=== PATIENT | female | born 1990 | race Asian ===

== ENCOUNTER 2019-07-13 00:56 | Emergency (ER) | payer SELFPAY ==
[~2019-07-13] VITALS: Ht 157.5 cm; Wt 59.0 kg
[2019-07-13 01:55] VITALS: BP 144/74
--- NOTE | 2019-07-13 01:58 | NUR ---
ER Nurse Note: Pt brought in by ambulance 29 from [facility] lobby c/o ALOC from unk cause. Per EMS, pt was found down, not answering to questions but combative. Pt unconscious, reacts with pain. Pt VSS, RA, chest rise and fall noted. Pupils equal and reactive to light. IV established RT AC; blood collected and infusing fluids. Side rails padded for pt safety. All orders completed per ERMD orders. All safety measures met; will continue to montior.
[2019-07-13 02:14] LABS: APPEARANCE,URINE CLEAR; BILIRUBIN, URINE NEGATIVE (NEGATIVE); COLOR,URINE PALE YELLOW; GLUCOSE, URINE (UA) NEGATIVE (NEGATIVE); KETONES,URINE 3+ (NEGATIVE); LEUKOCYTE ESTERASE ,URINE NEGATIVE (NEGATIVE); NITRITE,URINE NEGATIVE (NEGATIVE); PH,URINE 6.5 (4.5-8.0); PROTEIN,URINE NEGATIVE (NEGATIVE); UROBILINOGEN,URINE NORMAL MG/DL (0.0-1.0)
[2019-07-13 02:17] LABS: ANION GAP 14 mmol/L (5-15); BLOOD UREA NITROGEN 10 mg/dL (7-18); CALCIUM 9.1 MG/DL (8.5-10.1); CARBON DIOXIDE 24 MMOL/L (21-32); CHLORIDE 103 MMOL/L (98-107); CREATININE 0.9 MG/DL (0.55-1.30); POTASSIUM 3.5 MMOL/L (3.5-5.1); SODIUM 141 MMOL/L (136-145)
[2019-07-13 02:27] LABS: ALANINE AMINOTRANSFERASE 16 U/L (12-78); ALBUMIN 4.1 G/DL (3.4-5.0); ALBUMIN/GLOBULIN RATIO 1.4 (1.0-2.7); ALKALINE PHOSPHATASE 45 U/L (46-116); ASPARTATE AMINO TRANSFERASE 25 U/L (15-37); BILIRUBIN,TOTAL 1.1 MG/DL (0.2-1.0)
[2019-07-13 02:34] LABS: RED BLOOD COUNT 3.75 M/UL (4.20-5.40); WHITE BLOOD COUNT 9.4 K/UL (4.8-10.8)
[2019-07-13 02:35] LABS: HEMATOCRIT 38.5 % (37.0-47.0); HEMOGLOBIN 13.6 G/DL (12.0-16.0); MEAN CORPUSCULAR VOLUME 103 FL (80-99); PLATELET COUNT 245 K/UL (150-450); RED CELL DISTRIBUTION WIDTH 12.4 % (11.6-14.8)
[2019-07-13 02:50] VITALS: BP 138/70
[2019-07-13 02:51] LABS: BILIRUBIN,DIRECT 0.1 MG/DL (0.0-0.3)
--- NOTE | 2019-07-13 02:51 | NUR ---
ER Nurse Note: Pt asleep, no signs of distress, RA. Pt calm. Fluids administred. No n/v, no falls. All safety measures met; will continue to monitor.
--- NOTE | 2019-07-13 04:59 | Emergency Room Report ---
History of Present Illness General Chief Complaint: Altered Mental Status Source: EMS Present Illness HPI 29-year-old female presents ED for evaluation of delirium and altered mental status. Per EMS patient found in lobby of apartment building curled up in position tonight. Bystanders called 911. Per EMS patient very agitated. Not answering questions. Given Versed. On arrival patient altered and agitated lethargic. No signs of distress. Unable to provide any additional history at this time. No other aggravating relieving factors. No other associated symptoms Allergies: Coded Allergies: UNABLE TO ASSESS (Unverified , 07/13/19) Patient History Past Medical History: none Past Surgical History: none Pertinent Family History: none Social History: Reports: drug use; Denies: smoking, alcohol use Last Menstrual Period: unk Now: No Immunizations: UTD Reviewed Nursing Documentation: PMH: Agreed; PSxH: Agreed Nursing Documentation-PMH Past Medical History Deferred: Patient Unconscious Past Medical History: Deferred Review of Systems All Other Systems: limited Physical Exam Vital Signs Date Time Temp Pulse Resp B/P (MAP) Pulse Ox O2 Delivery O2 Flow Rate FiO2 07/13/19 00:58 97.5 110 12 144/74 (97) 98 Room Air Sp02 EP Interpretation: reviewed, normal General Appearance: no apparent distress, lethargic Head: normocephalic Eyes: bilateral eye normal inspection, bilateral eye PERRL ENT: normal ENT inspection Neck: normal inspection Respiratory: chest non-tender, lungs clear, normal breath sounds, speaking full sentences Cardiovascular #1: regular rate, rhythm, no edema Gastrointestinal: normal bowel sounds, non tender, soft, non-distended, no guarding, no rebound Rectal: deferred Genitourinary: no CVA tenderness Musculoskeletal: normal inspection Neurologic: other - lethargic Psychiatric: other - lethargic Skin: no rash Lymphatic: normal inspection Medical Decision Making Diagnostic Impression: Primary Impression: Substance abuse ER Course Hospital Course 29-year-old F presents to ED with altered mental status. initially agitated, givne versed in field Differential diagnoses include: Psychosis, EtOH, drug abuse Clinical course patient placed on stretcher. On [employer]. After initial history and physical ordered labs, IV fluids Labs reviewed-electrolytes okay, no leukocytosis, hemoglobin/hematocrit stable, tox panel + for multilple substances Patient allowed to rest. Observed on [employer] with stable vitals. Protecting airway. Patient is now awake alert oriented x3, safe for discharge with close outpatient follow-up i. I feel this is a highly complex case requiring extensive working including EKG/Rhythm strip, Xray/CT/US, Blood/urine lab work, repeat exams while in ED, and administration of strong opiates/narcotics for pain control, admission to hospital or close patient follow up. Diagnosis - substance abuse Stable and discharged to home. Followup with PMD. Return to ED if symptoms recur or worsen Labs Test 07/13/19 01:30 White Blood Count 9.4 K/UL (4.8-10.8) Red Blood Count 3.75 M/UL (4.20-5.40) Hemoglobin 13.6 G/DL (12.0-16.0) Hematocrit 38.5 % (37.0-47.0) Mean Corpuscular Volume 103 FL (80-99) Mean Corpuscular Hemoglobin 36.2 PG (27.0-31.0) Mean Corpuscular Hemoglobin Concent 35.2 G/DL (32.0-36.0) Red Cell Distribution Width 12.4 % (11.6-14.8) Platelet Count 245 K/UL (150-450) Mean Platelet Volume 7.9 FL (6.5-10.1) Neutrophils (%) (Auto) % (45.0-75.0) Lymphocytes (%) (Auto) % (20.0-45.0) Monocytes (%) (Auto) % (1.0-10.0) Eosinophils (%) (Auto) % (0.0-3.0) Basophils (%) (Auto) % (0.0-2.0) Urine Color Pale yellow Urine Appearance Clear Urine pH 6.5 (4.5-8.0) Urine Specific [place] 1.020 (1.005-1.035) Urine Protein Negative (NEGATIVE) Urine Glucose (UA) Negative (NEGATIVE) Urine Ketones 3+ (NEGATIVE) Urine Blood 5+ (NEGATIVE) Urine Nitrite Negative (NEGATIVE) Urine Bilirubin Negative (NEGATIVE) Urine Urobilinogen Normal MG/DL (0.0-1.0) Urine Leukocyte Esterase Negative (NEGATIVE) Urine RBC 40-60 /HPF (0 - 2) Urine WBC 2-4 /HPF (0 - 2) Urine Squamous Epithelial Cells Few /LPF (NONE/OCC) Urine Bacteria Few /HPF (NONE) Urine HCG, Qualitative Negative (NEGATIVE) Sodium Level 141 MMOL/L (136-145) Potassium Level 3.5 MMOL/L (3.5-5.1) Chloride Level 103 MMOL/L (98-107) Carbon Dioxide Level 24 MMOL/L (21-32) Anion Gap 14 mmol/L (5-15) Blood Urea Nitrogen 10 mg/dL (7-18) Creatinine 0.9 MG/DL (0.55-1.30) Estimat Glomerular Filtration Rate > 60 mL/min (>60) Glucose Level 122 MG/DL (74-106) Calcium Level 9.1 MG/DL (8.5-10.1) Total Bilirubin 1.1 MG/DL (0.2-1.0) Direct Bilirubin 0.1 MG/DL (0.0-0.3) Aspartate Amino Transf (AST/SGOT) 25 U/L (15-37) Alanine Aminotransferase (ALT/SGPT) 16 U/L (12-78) Alkaline Phosphatase 45 U/L (46-116) Total Protein 7.1 G/DL (6.4-8.2) Albumin 4.1 G/DL (3.4-5.0) Globulin 3.0 g/dL Albumin/Globulin Ratio 1.4 (1.0-2.7) Salicylates Level < 0.4 ug/mL (2.8-20) Urine Opiates Screen Negative (NEGATIVE) Acetaminophen Level < 2 MCG/ML (10-30) Urine Barbiturates Screen Negative (NEGATIVE) Phencyclidine (PCP) Screen Negative (NEGATIVE) Urine Amphetamines Screen Positive (NEGATIVE) Urine Benzodiazepines Screen Positive (NEGATIVE) Urine Cocaine Screen Positive (NEGATIVE) Urine Marijuana (THC) Screen Negative (NEGATIVE) Serum Alcohol < 3 mg/dL Last Vital Signs Date Time Temp Pulse Resp B/P (MAP) Pulse Ox O2 Delivery O2 Flow Rate FiO2 07/13/19 02:50 97.5 88 14 138/70 98 Room Air Status: improved Disposition: HOME, SELF-CARE Condition: Stable Scripts Unable to Obtain Active Prescriptions or Reported Meds Referrals: NOT CHOSEN IPA/,REFERRING (PCP) Nikhil Jeff MD Jul 13, 2019 04:59
[2019-07-13 06:09] VITALS: BP 140/74
--- NOTE | 2019-07-13 06:10 | NUR ---
ER Nurse Note: Pt asleep, no signs of distress. Pt does not wake up to strong painful stimuli. Pt unready for discharge. All safety measures met; will continue to montior.
[2019-07-13 07:56] VITALS: BP 138/72
--- NOTE | 2019-07-13 07:56 | NUR ---
ED Nurse Note: Patient resting in bed, still drowsy. Will continue to monitor.
--- NOTE | 2019-07-13 07:56 | NUR ---
ER nurse Note: Report given to NAPOLEON Hairston for contintuiy of care.
[2019-07-13] MEDS ORDERED: LORazepam 1mg tab ORAL ONE (10:15)
[2019-07-13 10:46] VITALS: BP 128/75
--- NOTE | 2019-07-13 10:46 | NUR ---
ER Nurse Note: Pt brought in by ambulance 29 from [facility] lobby c/o ALOC from [facility] cause. Per EMS, pt was found down, not answering to questions but combative. Pt unconscious, reacts with pain. Pt VSS, RA, chest rise and fall noted. Pupils equal and reactive to light. IV established RT AC; blood collected and infusing fluids. Side rails padded for pt safety. All orders completed per ERMD orders. All safety measures met; will continue to montior.
--- NOTE | 2019-07-13 10:47 | NUR ---
Note melany in EDM - 07/13/19 at 1048 by KRISTEL ER DISCHARGE NOTE: Patient is cleared to be discharged per ERMD, pt is aox4, on room air, with stable vital signs. pt was given dc and prescription instructions, pt was able to verbalize understanding, pt id band and iv site removed without complications. pt is able to ambulate with steady gait. pt took all belongings. Pt. left with her friend with steady gait
== END 2019-07-13 10:46 | disposition home or self-care (01) ==
LOC: EDBD 00:56 → EMR 01:50
DX: F19.10 Other psychoactive substance abuse, uncomplicated (principal)
CPT/HCPCS: 36415; 80053; 80307; 81003; 81025; 82248; 85025; 96360; 99284; G0480; J7030